=== PATIENT | female | born 1990 | race Caucasian/White ===

== ENCOUNTER 2020-10-13 10:09 | Emergency (ER) | payer BC ==
[~2020-10-13] VITALS: Ht 152.4 cm; Wt 43.1 kg
[~2020-10-13 10:09] MED LIST: GENERESS FE CH1 EACH; KLONOPIN1 MG; SPIRONOLACTONE25 MG PO; TOPAMAX50 MG; TRILEPTAL300 MG PO; WELLBUTRIN75 MG
[2020-10-13 11:04] LABS: BASOPHILS # (AUTO) 0.1 (0.0-0.1); BASOPHILS % 1.1 % (0.0-1.0); EOSINOPHILS # (AUTO) 0.2 (0.0-0.4); EOSINOPHILS % 2.8 % (0.0-6.0); HEMATOCRIT 40.1 % (34.2-44.1); HEMOGLOBIN 13.5 g/dL (12.0-16.0); LYMPHOCYTES # (AUTO) 2.8 (1.0-3.2); LYMPHOCYTES % 53.6 % (18.0-39.1); MEAN CORPUSCULAR HEMOGLOBIN 31.7 pg (28-32); MEAN CORPUSCULAR HGB CONC 33.7 g/dL (31-35); MEAN CORPUSCULAR VOLUME 94.1 fL (81-99); MONOCYTES # (AUTO) 0.4 (0.2-0.8); NEUTROPHILS # (AUTO) 1.8 (2.1-6.9); NEUTROPHILS % 34.3 % (38.7-80.0); PLATELET COUNT 365 x10e3/uL (140-360); RED BLOOD COUNT 4.26 x10e6/uL (3.6-5.1); RED CELL DISTRIBUTION WIDTH 11.7 % (11.7-14.4)
[2020-10-13 11:20] LABS: ALBUMIN/GLOBULIN RATIO 1.1 (0.8-2.0); CALCIUM 8.7 mg/dL (8.4-10.2); CREATININE, SERUM 1.1 mg/dL (0.57-1.11)
[2020-10-13] MEDS ORDERED: DEXAMETHASONE 4 MG TAB PO STA (11:47)
== END 2020-10-13 12:22 | disposition home or self-care (01) ==
LOC: ER 10:45
DX: R06.02 Shortness of breath (principal); R07.89 Other chest pain; R05 Cough; J40 Bronchitis, not specified as acute or chronic; J06.9 Acute upper respiratory infection, unspecified; F43.10 Post-traumatic stress disorder, unspecified; F31.9 Bipolar disorder, unspecified; R94.31 Abnormal electrocardiogram [ECG] [EKG]
CPT/HCPCS: 36415; 71045; 80053; 84484; 85025; 85379; 93005; 99284; J8540